=== PATIENT | male | born 1995 | race Caucasian/White ===

== ENCOUNTER 2019-01-05 15:36 | Emergency (ER) | payer SELFPAY ==
[~2019-01-05] VITALS: Ht 188 cm; Wt 104.7 kg
[~2019-01-05 15:36] MED LIST: IBUP800T48 PO
[2019-01-05 16:02] VITALS: Ht 188 cm; Wt 104.7 kg
[2019-01-05] MEDS ORDERED: SODIUM CHLORIDE 0.9% 1L BAG IV* STA (16:10)
[2019-01-05] MEDS ORDERED: IBUPROFEN 800 MG TAB PO ONE (16:30)
--- NOTE | 2019-01-05 16:43 | ERD ---
ER Documentation Chief Complaint Chief Complaint fever with chills and body x 1 day HPI 23-year-old previously healthy male presenting with fever and body aches that started at 3 AM today. He has no other associated symptoms. Denies any chest pain, shortness of breath, cough, runny nose, neck pain or stiffness, abdominal pain, dysuria, or diarrhea. He did have some vomiting earlier this morning which has resolved. He was concerned about his symptoms which is why he is here. ROS All systems reviewed and are negative except as per history of present illness. Medications Home Meds Active Scripts Ibuprofen* (Motrin*) 800 Mg Tab, 800 MG PO Q6H PRN for FEVER, #20 TAB Prov:MITUL LOYOLA MD 01/05/19 Reported Medications [none] No Conflict Check 11/14/12 Allergies Allergies: Coded Allergies: No Known Allergy (Unverified , 11/27/13) PMhx/Soc Medical and Surgical Hx: pt denies Medical Hx, pt denies Surgical Hx History of Surgery: No Anesthesia Reaction: No Hx Neurological Disorder: No Hx Respiratory Disorders: No Hx Cardiac Disorders: No Hx Psychiatric Problems: No Hx Miscellaneous Medical Probl: No Hx Alcohol Use: No Hx Substance Use: No Hx Tobacco Use: No Smoking Status: Never smoker FmHx Family History: No diabetes Physical Exam Vitals Vital Signs Date Temp Pulse Resp B/P (MAP) Pulse Ox O2 O2 Flow FiO2 Time Delivery Rate 01/05/19 Nasal 2 16:22 Cannula 01/05/19 101.5 93 20 139/62 94 16:02 (87) Physical Exam const: No acute distress, Well-appearing, nontoxic Head: Atraumatic Eyes: Normal Conjunctiva ENT: Normal External Ears, Nose and Mouth. Posterior oropharynx normal without exudate or erythema. Neck: Full range of motion. No meningismus. Resp: Clear to auscultation bilaterally Cardio: Tachycardic with regular rhythm, no murmurs Abd: Soft, non tender, non distended. Normal bowel sounds Skin: No petechiae or rashes Back: No midline or flank tenderness Ext: No cyanosis, or edema Neur: Awake and alert, normal speech, moving all extremities Psych: Normal Mood and Affect Result Diagram: 01/05/19 1615 01/05/19 1615 Results 24 hrs Laboratory Tests Test 01/05/19 16:15 01/05/19 16:17 01/05/19 16:47 White Blood Count 11.4 10^3/ul Red Blood Count 5.30 10^6/ul Hemoglobin 15.9 g/dl Hematocrit 46.1 % Mean Corpuscular Volume 87.0 fl Mean Corpuscular Hemoglobin 30.0 pg Mean Corpuscular 34.5 g/dl Hemoglobin Concent Red Cell Distribution Width 12.7 % Platelet Count 187 10^3/UL Mean Platelet Volume 9.4 fl Immature Granulocytes % 0.400 % Neutrophils % 88.3 % Lymphocytes % 4.7 % Monocytes % 6.3 % Eosinophils % 0.1 % Basophils % 0.2 % Nucleated Red Blood Cells % 0.0 /100WBC Immature Granulocytes # 0.040 10^3/ul Neutrophils # 10.0 10^3/ul Lymphocytes # 0.5 10^3/ul Monocytes # 0.7 10^3/ul Eosinophils # 0.0 10^3/ul Basophils # 0.0 10^3/ul Nucleated Red Blood Cells # 0.0 10^3/ul Sodium Level 138 mmol/L Potassium Level 3.5 mmol/L Chloride Level 101 mmol/L Carbon Dioxide Level 26 mmol/L Anion Gap 11 Blood Urea Nitrogen 17 mg/dl Creatinine 1.11 mg/dl Est Glomerular Filtrat > 60 mL/min Rate mL/min Glucose Level 113 mg/dl Calcium Level 9.4 mg/dl Total Bilirubin 1.6 mg/dl Direct Bilirubin 0.00 mg/dl Indirect Bilirubin 1.6 mg/dl Aspartate Amino 35 IU/L Transf (AST/SGOT) Alanine 31 IU/L Aminotransferase (ALT/SGPT) Alkaline Phosphatase 70 IU/L Total Protein 7.2 g/dl Albumin 4.7 g/dl Globulin 2.50 g/dl Albumin/Globulin Ratio 1.88 POC Venous Lactate 1.0 mmol/L Urine Color STRAW Urine Clarity CLEAR Urine pH 7.0 Urine Specific Devens 1.005 Urine Ketones NEGATIVE mg/dL Urine Nitrite NEGATIVE mg/dL Urine Bilirubin NEGATIVE mg/dL Urine Urobilinogen NEGATIVE mg/dL Urine Leukocyte Esterase NEGATIVE Radha/ul Urine Hemoglobin NEGATIVE mg/dL Urine Glucose NEGATIVE mg/dL Urine Total Protein NEGATIVE mg/dl Current Medications Medications Dose Sig/Madonna Start Time Status Last (Trade) Ordered Route PRN Stop Time Admin Dose Reason Admin Sodium 2,470 ml BOLUS OVER 2 01/05/19 DC 01/05/19 Chloride HOURS STAT 16:10 16:17 (NS) IV* 01/05/19 16:12 Ibuprofen 800 mg ONCE ONCE 01/05/19 DC 01/05/19 (Motrin) PO 16:30 16:17 01/05/19 16:31 Procedures/MDM EMERGENT LABS AND DIAGNOSTIC STUDIES: Lab Results above were reviewed and interpreted by me. CBC: no anemia or evidence of infection CMP: Nonspecific mild elevation of bilirubin. No evidence of clinically significant electrolyte abnormality, acidosis, renal failure, hypoglycemia, liver disease Lactate within normal limits without evidence of sepsis or tissue hypoperfusion Radiology Results as interpreted by Radiology below were reviewed by Alejandro Loyola MD: Chest x-ray shows no acute abnormalities Initial Nursing notes reviewed. Previous Medical Records requested via the Electronic Health Record. EMERGENCY DEPARTMENT COURSE / MEDICAL DECISION MAKING: Patient is presenting with fever, tachycardia, and body aches. He is otherwise well-appearing on exam. Doubt serious bacterial infection. Likely suffering from an acute viral illness. He did receive IV fluids here but no antibiotics given. Lactate was within normal limits. I feel the patient is stable for discharge with instructions to rest as much as possible. Hydration encouraged. Prescription for ibuprofen given for symptom control. Return precautions discussed. Patient's blood pressure was elevated (>120/80) but appears stable without evidence of hypertensive emergency or urgency. The patient was counseled about the risks of hypertension and urged to pursue outpatient monitoring and therapy within a week with their primary care physician. Departure Diagnosis: Primary Impression: Acute febrile illness Condition: Stable Patient Instructions: Febrile Illness, Uncertain Cause (Adult) Additional Instructions: Your symptoms will likely worsen in the next 2 to 3 days. If you have any new symptoms that are concerning you, you should return for reevaluation or go to your primary doctor. MITUL LOYOLA MD Jan 05, 2019 16:43
[2019-01-05 17:50] VITALS: BP 116/60; PULSE 99; RESP 18
== END 2019-01-05 17:51 | disposition home or self-care (01) ==
LOC: E/R 15:36
DX: R56.00 Simple febrile convulsions (principal)
CPT/HCPCS: 71045; 80053; 81003; 83605; 85025; 87040; 87086; J7030; 36415